=== PATIENT | male | born 1960 | race Caucasian/White ===

== ENCOUNTER 2018-08-13 21:22 | Emergency (ER) | payer BC ==
[~2018-08-13] VITALS: Ht 193 cm; Wt 90.7 kg
[~2018-08-13 21:22] MED LIST: AMOX-423 PO
[2018-08-13 21:43] VITALS: BP_SYST 133
[2018-08-14 00:28] VITALS: BP_SYST 128
[2018-08-14] MEDS ORDERED: LORazepam 1 MG TABLET PO ONE (00:30)
== END 2018-08-14 00:28 | disposition home or self-care (01) ==
LOC: SED 21:22
DX: R44.0 Auditory hallucinations (principal)
CPT/HCPCS: 99282